=== PATIENT | male | born 1960 | race Hispanic/Latino ===

== ENCOUNTER 2016-09-02 05:44 | Emergency (ER) | payer OTHER ==
[2016-09-02 05:44] VITALS: BMI 20.5
--- NOTE | 2016-09-02 05:51 | C.PDOC ---
History Of Present Illness Patient presents to the ER with a complaint of SOB and wheezing. Patient reports he is an active smoker. EMS states he initially was speaking in 2-3 words sentences, after being given a duoneb and 125 solumedrol in the field his condition improved and is now speaking in complete sentences. Denies chest pain and palpitations. Time Seen by Provider: 09/02/16 05:51 Chief Complaint (Nursing): Shortness Of Breath History Per: Patient History/Exam Limitations: no limitations Onset/Duration Of Symptoms: Hrs Current Symptoms Are (Timing): Better (After duoneb and solumedrol in the field) Initiating Event: Other (Not known) Quality: Other (SOB) Exacerbating Factor(s): Coughing, Other (None) Current Respiratory Medications: See Home Med List Severity: None Pain Scale Rating Of: 0 Associated Symptoms: denies: Chest Pain, Anxiety, Other (Palpitations) Reports Recently: Seen In ED, Treated By A Physician Recent travel outside of the [place]: No Additional History Per: EMS Past Medical History Reviewed: Historical Data, Nursing Documentation, Vital Signs Vital Signs: Last Vital Signs Temp 99.1 F 09/02/16 05:49 Pulse 101 H 09/02/16 05:49 Resp 24 09/02/16 05:53 BP 165/93 H 09/02/16 05:49 Pulse Ox 99 09/02/16 05:53 - Medical History PMH: HTN, Chronic Kidney Disease - [facility] Procedures DESTRUCTION OF NOSE, PERCUTANEOUS ENDOSCOPIC APPROACH (08/30/15) MEASURE OF CARDIAC SAMPL & PRESSURE, L HEART, PERC APPROACH (04/13/16) PACKING OF NASAL REGION USING PACKING MATERIAL (08/30/15) PLAIN RADIOGRAPHY OF LEFT HEART USING LOW OSMOLAR CONTRAST (04/13/16) PLAIN RADIOGRAPHY OF MULT COR ART USING L OSM CONTRAST (04/13/16) RESECTION OF NASAL TURBINATE, ENDO (08/30/15) TRANSFUSE NONAUT RED BLOOD CELLS IN PERIPH VEIN, PERC (08/30/15) Family History: States: No Known Family Hx - Social History Hx Alcohol Use: Yes Hx Substance Use: No - Immunization History Hx Tetanus Toxoid Vaccination: No Hx Influenza Vaccination: No Hx Pneumococcal Vaccination: No Review Of Systems Constitutional: Negative for: Fever, Chills, Malaise ENT: Negative for: Throat Pain Cardiovascular: Negative for: Chest Pain, Palpitations Respiratory: Positive for: Shortness of Breath, Wheezing Gastrointestinal: Negative for: Nausea, Vomiting, Constipation Genitourinary: Negative for: Dysuria Musculoskeletal: Negative for: Back Pain Skin: Negative for: Rash, Lesions, Jaundice, Bruising Neurological: Negative for: Weakness Psych: Negative for: Anxiety Physical Exam - Physical Exam Appears: Well, Non-toxic Skin: Warm, Dry Head: Normacephalic Eye(s): bilateral: Normal Inspection Oral Mucosa: Moist Neck: Supple Chest: Symmetrical, No Tenderness Cardiovascular: Rhythm Regular Respiratory: No Rales, No Rhonchi, Wheezing (Scattered) Gastrointestinal/Abdominal: Soft, No Tenderness Back: Normal Inspection Extremity: Normal ROM Extremity: Bilateral: Atraumatic, Normal Color And Temperature Neurological/Psych: Oriented x3, Normal Speech, Normal Cognition Gait: Steady ED Course And Treatment - Laboratory Results Result Diagrams: 09/02/16 06:19 ECG: Interpreted By Me, Viewed By Me (98) ECG Rhythm: Sinus Rhythm (98), Nonspecific Changes O2 Sat by Pulse Oximetry: 99 Pulse Ox Interpretation: Normal - Radiology CXR: Interpreted by Me, Viewed By Me CXR Interpretation: No: Infiltrates, Fracture, Pnemothorax Progress Note: nebs Critical Care Time - Critical Care Note Total Time (in mins): 30 Documented critical care: time excludes all time spent performing seperately billable procedures. Disposition Counseled Patient/Family Regarding: Studies Performed, Diagnosis - Disposition Disposition Time: 05:51 Condition: FAIR - Clinical Impression Clinical Impression: Tobacco abuse, Dyspnea, COPD (chronic obstructive pulmonary disease) - Scribe Statement The provider has reviewed the documentation as recorded by the Scribisabella Reid All medical record entries made by the Scribe were at my direction and personally dictated by me. I have reviewed the chart and agree that the record accurately reflects my personal performance of the history, physical exam, medical decision making, and the department course for this patient. I have also personally directed, reviewed, and agree with the discharge instructions and disposition. Physician Patient Turnover Patient Signed Over To: Linsey Good Handoff Comments: pending labs and disposition
[2016-09-02] MEDS ORDERED: Sodium Chloride 0.9% 1,000 ML IV ONE (06:10)
[2016-09-02] MEDS ORDERED: Albuterol-Ipratrop 3 mg / 0.5 (3 ml) UD IH SCH (06:15)
[2016-09-02 06:22] LABS: BASO # 0.1 K/uL (0.0-0.2); BASO % 0.5 % (0.0-2.0); EOS # 0.1 K/uL (0.0-0.7); EOS % 0.6 % (0.0-4.0); HEMATOCRIT 43.3 % (35.0-51.0); LYMPH # 1.5 K/uL (1.0-4.3); LYMPH % 12.8 % (20.0-40.0); MEAN PLATELET VOLUME 8.9 fL (7.2-11.7); MONO # 0.9 K/uL (0.0-0.8); MONO % 8.3 % (0.0-10.0); RED CELL DISTRIBUTION WIDTH 13.6 % (11.5-14.5); WHITE BLOOD COUNT 11.3 K/uL (4.8-10.8)
[2016-09-02 06:30] LABS: INR 1.1
[2016-09-02 06:34] LABS: CHLORIDE 100 mmol/L (98-107); POTASSIUM 4.2 mmol/L (3.6-5.2); SODIUM 136 mmol/L (132-148)
[2016-09-02 06:36] LABS: AST/SGOT 40 U/L (17-59); CARBON DIOXIDE 25 mmol/L (22-30); GFR AFRICAN-AMERICAN > 60
[2016-09-02 06:37] LABS: ALB/GLOB RATIO 1.3 (1.0-2.1); ALKALINE PHOSPHATASE 74 U/L (38-126); ALT/SGPT 22 U/L (21-72); BLOOD UREA NITROGEN 14 mg/dL (9-20); GLUCOSE,RANDOM 86 mg/dL (75-110); TOTAL PROTEIN 7.2 g/dL (6.3-8.3)
[2016-09-02 06:38] LABS: CALCIUM 8.6 mg/dl (8.6-10.4)
--- NOTE | 2016-09-02 08:27 | RAD ---
PROCEDURE: CHEST RADIOGRAPH, 1 VIEW HISTORY: Shortness of breath COMPARISON: None available. FINDINGS: LUNGS: Mild venous congestion. Right hilar prominence. PLEURA: No pneumothorax or pleural fluid seen. CARDIOVASCULAR: Normal. OSSEOUS STRUCTURES: Lucency through the distal right clavicle may represent artifact. Clinical correlation to exclude osseous injury. VISUALIZED UPPER ABDOMEN: Normal. OTHER FINDINGS: None. IMPRESSION: Mild venous congestion. Lucency through the distal right clavicle may represent artifact. Clinical correlation to exclude osseous injury.
[2016-09-02 08:37] VITALS: BP 153/83; PULSE 101; RESP 18; TEMP 98.1; O2SAT 95
[2016-09-02 19:36] LABS: ABG ALLEN TEST POS; DRAW SITE RR
--- NOTE | 2016-09-06 19:20 | CARD ---
APPROVED REPORT EKG Measurement Heart [id number] <Conclusion> Normal sinus rhythm Moderate voltage criteria for LVH, may be normal variant Prolonged QT Abnormal ECG
== END 2016-09-02 08:41 | disposition home or self-care (01) ==
LOC: C.ER 05:44
DX: J44.9 Chronic obstructive pulmonary disease, unspecified (principal); Z72.0 Tobacco use
CPT/HCPCS: 71010; 80053; 82803; 85025; 85610; 85730; 87040; 96360; 99285; J7040

== ENCOUNTER 2018-06-27 18:02 | Outpatient (CLI) | payer OTHER | END 2018-06-27 18:03 | disposition home or self-care (01) | LOC: C.SLEEP 18:03 | DX: G47.33 Obstructive sleep apnea (adult) (pediatric) (principal) ==